=== PATIENT | female | born 1995 | race Caucasian/White ===

== ENCOUNTER 2018-02-20 20:52 | Emergency (ER) | payer OTHER ==
[2018-02-20] MEDS ORDERED: LIDOCAINE 2% JELLY 5 ML TUBE TOP ONE (22:26)
[2018-02-20] MEDS ORDERED: HYDROCODONE/ACETAMINOPHEN 5-325 MG (6 TAB/ER DISP) PO PRN (22:29)
--- NOTE | 2018-02-20 22:31 | ER Document Report ---
ED General - General Chief Complaint: Urinary Problem Stated Complaint: PAIN WITH URINATION Time Seen by Provider: 02/20/18 22:03 Notes: Patient is a 22-year-old female who presents with complaint of pain from genital herpes. She was seen at [facility] earlier today and diagnosed with that. She is placed on valacyclovir. She says hurts to pee and she has pain and therefore she is requesting second opinion to see if there is anything else that she can do to help deal with the pain. She has no other complaints at this time. - Related Data Allergies/Adverse Reactions: No Known Allergies Allergy (Verified 02/20/18 20:57) Past Medical History - Social History Smoking Status: Never Smoker Chew tobacco use (# tins/day): No Frequency of alcohol use: None Drug Abuse: None Family History: Reviewed & Not Pertinent Patient has suicidal ideation: No Patient has homicidal ideation: No Renal/ Medical History: Denies: Hx Peritoneal Dialysis Review of Systems - Review of Systems Notes: My Normal Review Basic REVIEW OF SYSTEMS: CONSTITUTIONAL : Denies fever, chills, or sweats. Denies recent illness. GENITOURINARY: burning over genital area when urinating. FEMALE GENITOURINARY: Some diagnosis of genital herpes MUSCULOSKELETAL: Denies neck or back pain or joint pain or swelling. SKIN: Genital herpes NEUROLOGICAL: Denies altered mental status or loss of consciousness. Denies headache. ALL OTHER SYSTEMS REVIEWED AND NEGATIVE. Physical Exam - Vital signs Vitals: Temp Pulse Resp BP Pulse Ox 98.7 F 89 16 132/70 H 98 02/20/18 21:10 02/20/18 21:10 02/20/18 21:10 02/20/18 21:10 02/20/18 21:10 - Notes Notes: General Appearance: Well nourished, alert, cooperative, no acute distress, moderate obvious discomfort. Vitals: reviewed, See vital signs table. Genital: Pelvic exam performed with female nurse at bedside. Patient has several herpetic lesions over the external vaginal genitalia. Neuro: speech clear, oriented x 3, normal affect, responds appropriately to questions. Course - Re-evaluation Re-evalutation: 02/21/18 05:51 Patient has obvious genital herpes on exam. I will give her lidocaine cream to apply. I informed her she cannot plate more than I have prescribed or she could become lidocaine toxic. Informed her that the medication that Abilio put her on his appropriate medication for treatment of this. Informed her to return to ER if she has fevers, swelling or redness in the genital area, or any signs of infection. Currently patient has no evidence of secondary bacterial infection on external genital exam. Dictation of this chart was performed using voice recognition software; therefore, there may be some unintended grammatical errors. - Vital Signs Vital signs: Temp Pulse Resp BP Pulse Ox 98.1 F 84 16 108/73 98 02/20/18 22:55 02/20/18 22:55 02/20/18 22:55 02/20/18 22:55 02/20/18 22:55 Discharge - Discharge Clinical Impression: Genital herpes Qualifiers: Herpes simplex infection site: vulvovaginitis Qualified Code(s): A60.04 - Herpesviral vulvovaginitis Condition: Good Disposition: HOME, SELF-CARE Additional Instructions: Please apply a thin layer of the lidocaine jelly on your vaginal area no more than once every 8 hours. Please take the valcyclovir as prescribed. Please follow up wiht your doctor in 1 week for reevaluation. return tot ER if you have severe headaches or fevers. Prescriptions: RX: Lidocaine 1 gm TP ASDIR PRN #30 cream..g. PRN Reason:
[2018-02-20 22:56] VITALS: BP 108/73
== END 2018-02-20 22:55 | disposition home or self-care (01) ==
LOC: ER 20:52
DX: A60.04 Herpesviral vulvovaginitis (principal); R39.198 Other difficulties with micturition; Z79.899 Other long term (current) drug therapy
CPT/HCPCS: 99283

== ENCOUNTER 2018-02-21 10:21 | Emergency (ER) | payer OTHER ==
--- NOTE | 2018-02-21 10:29 | ER Document Report ---
ED Medical Screen (RME) <TAISHA GAMING - Last Filed: 02/21/18 10:29> <NARCISO TEAGUE - Last Filed: 02/21/18 16:58> - General Chief Complaint: Urinary Problem Stated Complaint: UNABLE TO URINATE Time Seen by Provider: 02/21/18 10:27 Notes: 22 years old female with a history of herpes presents today with unable to urinate for 24 hours, lower abdominal pain and discomfort. No fever chills nausea. Did not have any dysuria frequency prior to that. Seen free in moderate to severe discomfort. Tender abdomen (TAISHA GAMING) - Related Data Allergies/Adverse Reactions: No Known Allergies Allergy (Verified 02/21/18 10:23) Past Medical History - Social History Chew tobacco use (# tins/day): No Frequency of alcohol use: None Drug Abuse: None Renal/ Medical History: Denies: Hx Peritoneal Dialysis <TAISHA GAMING - Last Filed: 02/21/18 10:29> - Vital signs Vitals: Temp Pulse Resp BP Pulse Ox 97.6 F 87 16 120/78 99 02/21/18 10:25 02/21/18 10:25 02/21/18 10:25 02/21/18 10:25 02/21/18 10:25 Course - Laboratory Result Diagrams: 02/21/18 13:25 02/21/18 13:25 <NARCISO TEAGUE - Last Filed: 02/21/18 16:58> - Vital Signs Vital signs: Temp Pulse Resp BP Pulse Ox 97.6 F 87 16 120/78 99 02/21/18 10:25 02/21/18 10:25 02/21/18 10:25 02/21/18 10:25 02/21/18 10:25 - Laboratory Laboratory results interpreted by me: 02/21/18 11:02 Urine Protein 100 H Urine Ketones TRACE H Urine Blood SMALL H Urine Nitrite POSITIVE H Ur Leukocyte Esterase SMALL H Doctor's Discharge <TAISHA GAMING - Last Filed: 02/21/18 10:29> <NARCISO TEAGUE - Last Filed: 02/21/18 16:58> - Discharge Clinical Impression: Urinary retention, UTI (urinary tract infection), Herpes genitalia Condition: Stable Disposition: HOME, SELF-CARE Additional Instructions: Herpes Genitalia You have herpes genitalia and her on an antiviral medication for this condition. Additionally, you have developed a UTI. We are putting you on an antibiotic for that condition. URINARY TRACT INFECTION: Your evaluation indicates that you have a urinary tract infection. This is due to germs growing in the bladder. This is a common problem. This infection usually responds quickly to antibiotics. Your antibiotic should be taken exactly as prescribed. Drink plenty of fluids -- three to four quarts a day. Occasionally, a bladder anesthetic will be prescribed to help stop the feeling of urgency until the antibiotic has a chance to clear the infection. This may cause your urine to be dark orange. Certain urine infections require a culture. If the doctor obtained a culture, the results will be back in two days. You should call to see if a change in treatment is needed. A repeat urinalysis after you finish treatment is often recommended. The physician will let you know if further testing is required. Call the doctor if you develop fever, chills, flank pain, inability to urinate, or blood in the urine. ANTIBIOTIC THERAPY: You have been given an antibiotic prescription. It's important that you take all the medication, unless instructed otherwise by your physician. Failure to complete the entire course can result in relapse of your condition. Common side effects of antibiotics include nausea, intestinal cramping, or diarrhea. Women may develop vaginal yeast infections, and babies can get yeast (thrush) in the mouth following the use of antibiotics. Contact your physician if you develop significant side effects from this medication. Allergy to this antibiotic can result in hives, wheezing, faintness, or itching. If symptoms of allergy occur, stop the medication and call the doctor. NITROFURANTOIN (MACRODANTIN, MACROBID): You have received a prescription for nitrofurantoin (Macrodantin). This antibiotic is used for urinary tract infections. Women who are or nursing should notify the physician before taking this medicine. If you have ever had a problem caused by this medication in the past, be sure the physician is aware of it. Common side effects of this medicine include nausea, vomiting, or decreased appetite. Notify your physician if these side effects become severe. Immediately stop this medicine and call the physician if you develop cough, shortness of breath, chest pain, weakness, jaundice (yellow color of the skin and whites of the eyes), or a skin rash. Take your pain medication as been prescribed. FOLLOW-UP CARE: If you have been referred to a physician for follow-up care, call the physicians office for an appointment as you were instructed or within the next two days. If you experience worsening or a significant change in your symptoms, notify the physician immediately or return to the Emergency Department at any time for re-evaluation. Prescriptions: Lidocaine HCl [Xylocaine 2% Jelly 30 ml Tube] 30 ml MM BIDP PRN #1 tube PRN Reason: Nitrofurantoin/Nitrofuran Mac [Macrobid 100 mg Capsule] 1 tab PO BID #10 capsule
[2018-02-21] MEDS ORDERED: LIDOCAINE 2% URO-JET 5 ML KIT MM ONE ×2 (10:43→15:22)
[2018-02-21] MEDS ORDERED: OXYCODONE-ACETAMINOPHEN 5-325 MG TABLET PO ONE (11:57)
[2018-02-21 12:15] LABS: APPEARANCE,URINE TURBID; BILIRUBIN,URINE NEGATIVE (NEGATIVE); COLOR,URINE YELLOW; GLUCOSE, URINE NEGATIVE (NEGATIVE); KETONES,URINE TRACE mg/dL (NEGATIVE); LEUKOCYTE ESTERASE,URINE SMALL (NEGATIVE); NITRITE,URINE POSITIVE (NEGATIVE); PROTEIN,URINE 100 mg/dL (NEGATIVE); URINE SPECIFIC GRAVITY 1.027; UROBILINOGEN,URINE NEGATIVE mg/dL (<2.0)
[2018-02-21 13:38] LABS: ABSOLUTE LYMPHOCYTES (AUTO) 1.5 10^3/uL (0.5-4.7); ABSOLUTE MONOCYTES (AUTO) 0.5 10^3/uL (0.1-1.4); BASOPHILS % (AUTO) 0.2 % (0-2); EOSINOPHILS % (AUTO) 0.2 % (0-6); HEMATOCRIT 39.9 % (36.0-47.0); LYMPHOCYTES % (AUTO) 24.5 % (13-45); MEAN CORPUSCULAR HEMOGLOBIN 29.7 pg (27.0-33.4); MEAN CORPUSCULAR HGB CONC 34.9 g/dL (32.0-36.0); MEAN CORPUSCULAR VOLUME 85 fl (80-97); PLATELET COUNT 229 10^3/uL (150-450); RED CELL DISTRIBUTION WIDTH 13.3 % (11.5-14.0); SEGMENTED NEUTROPHILS % (AUTO) 66.1 % (42-78); TOTAL CELLS COUNTED % (AUTO) 100 %
[2018-02-21] MEDS: NORMAL SALINE 1000 ML 1,000 ML IV PRN ×2 (13:44→15:50)
[2018-02-21 13:54] LABS: ALANINE AMINOTRANSFERASE 27 U/L (9-52); ALBUMIN 4.6 g/dL (3.5-5.0); ALKALINE PHOSPHATASE 75 U/L (38-126); ANION GAP 12 (5-19); ASPARTATE AMINO TRANSFERASE 23 U/L (14-36); BILIRUBIN,DIRECT 0.2 mg/dL (0.0-0.4); BILIRUBIN,TOTAL 0.4 mg/dL (0.2-1.3); BLOOD UREA NITROGEN 18 mg/dL (7-20); CALCIUM 9.2 mg/dL (8.4-10.2); CARBON DIOXIDE 26 mmol/L (22-30); CHLORIDE 105 mmol/L (98-107); GLUCOSE 85 mg/dL (75-110); POTASSIUM 4.1 mmol/L (3.6-5.0); SODIUM 142.8 mmol/L (137-145); TOTAL PROTEIN 7.2 g/dL (6.3-8.2)
[2018-02-21 17:27] VITALS: BP 108/63
--- NOTE | 2018-02-21 19:20 | ER Document Report ---
ED GI/ - General Chief Complaint: Urinary Problem Stated Complaint: UNABLE TO URINATE Time Seen by Provider: 02/21/18 10:27 Notes: Patient is complaining of pain with urination and unable to urinate for the past 24 hours. She was diagnosed yesterday at the [facility] was herpes genitalia and put on valacyclovir which she is taking. However, she is having severe pain with urination on her lesions from the herpes. She says that she h as been unable to urinate for 24 hours. She was seen here last evening and given oxycodone and a lidocaine gel, but they are not helping. Has not had any fever. - Related Data Allergies/Adverse Reactions: No Known Allergies Allergy (Verified 02/21/18 10:23) Past Medical History - Social History Smoking Status: Never Smoker Chew tobacco use (# tins/day): No Frequency of alcohol use: None Drug Abuse: None Family History: Reviewed & Not Pertinent Patient has suicidal ideation: No Patient has homicidal ideation: No Renal/ Medical History: Denies: Hx Peritoneal Dialysis Review of Systems - Review of Systems Notes: REVIEW OF SYSTEMS: CONSTITUTIONAL : Denies fever. EENT: Denies eye, ear, nose or mouth or throat pain or other symptoms. CARDIOVASCULAR: Denies chest pain. RESPIRATORY: Denies cough, chest congestion, or shortness of breath. GASTROINTESTINAL: Has some nausea, but not vomiting. Lower abdominal discomfort and feels as if she needs to urinate. GENITOURINARY: Denies difficulty or painful urinating, urinary frequency, blood in urine. MUSCULOSKELETAL: Denies back or neck pain. Denies joint pain or swelling. SKIN: Denies rash or skin lesions. NEUROLOGICAL: Denies LOC or altered mental status. Denies headache. Denies sensory loss or motor deficits. ALL OTHER SYSTEMS REVIEWED AND NEGATIVE. Physical Exam - Vital signs Vitals: Temp Pulse Resp BP Pulse Ox 97.6 F 87 16 120/78 99 02/21/18 10:25 02/21/18 10:25 02/21/18 10:25 02/21/18 10:25 02/21/18 10:25 Interpretation: Normal Notes: PHYSICAL EXAMINATION: GENERAL: Appears to be in pain. Vital signs are all normal. Afebrile. HEAD: Atraumatic, normocephalic. EYES: Pupils equal round and reactive to light, extraocular movements intact. ENT: oropharynx clear without exudates. Moist mucous membranes. NECK: Normal range of motion, supple. LUNGS: Breath sounds clear and equal bilaterally. HEART: Regular rate and rhythm without murmurs. ABDOMEN: Soft, tender in the lower midline suprapubic region. No guarding or rebound. No masses. BACK: No tenderness throughout entire back. EXTREMITIES: Normal range of motion without pain. NEUROLOGICAL: Normal speech, normal gait. Normal sensory, motor, and reflex exams. Awake, alert, and oriented x3. Cranial nerves normal. PSYCH: Normal mood, normal affect. SKIN: Warm, dry, no rashes. Course - Re-evaluation Re-evalutation: 02/21/18 19:19 A Cabrera catheter was placed in the patient and there was some urine obtained initially but then it stopped flowing, likely obstructed catheter. When he did not seem to function, we remove the 14 Japanese catheter and put a 16 catheter in. She had a good flow of about 500 mL of dark looking urine. Her urinalysis looks like a definite infection. Patient tells me that she had an infection in her urinary tract a week ago and was put on Macrobid and did not finish her treatment with that medication because her UTI symptoms had subsided. She still has some of those Macrobid tablets remaining. 02/21/18 19:21 Because of his concern the patient may be dehydrated. She was given 2 L of saline. She had good urine flow after that. Cabrera catheter is being left in at this time. Patient is to travel back home to [place] Monday morning. I told her I would leave the catheter in until she gets home on Monday and take it out at that time. - Vital Signs Vital signs: Temp Pulse Resp BP Pulse Ox 98.4 F 70 16 108/63 100 02/21/18 17:15 02/21/18 17:15 02/21/18 10:25 02/21/18 17:15 02/21/18 17:15 - Laboratory Result Diagrams: 02/21/18 13:25 02/21/18 13:25 Laboratory results interpreted by me: 02/21/18 11:02 Urine Protein 100 H Urine Ketones TRACE H Urine Blood SMALL H Urine Nitrite POSITIVE H Ur Leukocyte Esterase SMALL H Discharge - Discharge Clinical Impression: Urinary retention, UTI (urinary tract infection), Herpes genitalia Condition: Stable Disposition: HOME, SELF-CARE Additional Instructions: Herpes Genitalia You have herpes genitalia and her on an antiviral medication for this condition. Additionally, you have developed a UTI. We are putting you on an antibiotic for that condition. URINARY TRACT INFECTION: Your evaluation indicates that you have a urinary tract infection. This is due to germs growing in the bladder. This is a common problem. This infection usually responds quickly to antibiotics. Your antibiotic should be taken exactly as prescribed. Drink plenty of fluids -- three to four quarts a day. Occasionally, a bladder anesthetic will be prescribed to help stop the feeling of urgency until the antibiotic has a chance to clear the infection. This may cause your urine to be dark orange. Certain urine infections require a culture. If the doctor obtained a culture, the results will be back in two days. You should call to see if a monteiro ge in treatment is needed. A repeat urinalysis after you finish treatment is often recommended. The physician will let you know if further testing is required. Call the doctor if you develop fever, chills, flank pain, inability to urinate, or blood in the urine. ANTIBIOTIC THERAPY: You have been given an antibiotic prescription. It's important that you take all the medication, unless instructed otherwise by your physician. Failure to complete the entire course can result in relapse of your condition. Common side effects of antibiotics include nausea, intestinal cramping, or diarrhea. Women may develop vaginal yeast infections, and babies can get yeast (thrush) in the mouth following the use of antibiotics. Contact your physician if you develop significant side effects from this medication. Allergy to this antibiotic can result in hives, wheezing, faintness, or itching. If symptoms of allergy occur, stop the medication and call the doctor. NITROFURANTOIN (MACRODANTIN, MACROBID): You have received a prescription for nitrofurantoin (Macrodantin). This antibiotic is used for urinary tract infections. Women who are or nursing should notify the physician before taking this medicine. If you have ever had a problem caused by this medication in the past, be sure the physician is aware of it. Common side effects of this medicine include nausea, vomiting, or decreased appetite. Notify your physician if these side effects become severe. Immediately stop this medicine and call the physician if you develop cough, shortness of breath, chest pain, weakness, jaundice (yellow color of the skin and whites of the eyes), or a skin rash. Take your pain medication as been prescribed. FOLLOW-UP CARE: If you have been referred to a physician for follow-up care, call the physicians office for an appointment as you were instructed or within the next two days. If you experience worsening or a significant change in your symptoms, notify the physician immediately or return to the Emergency Department at any time for re-evaluation. Prescriptions: Lidocaine HCl [Xylocaine 2% Jelly 30 ml Tube] 30 ml MM BIDP PRN #1 tube PRN Reason: Nitrofurantoin/Nitrofuran Mac [Macrobid 100 mg Capsule] 1 tab PO BID #10 capsule
== END 2018-02-21 17:28 | disposition home or self-care (01) ==
LOC: ER 10:21
DX: R33.9 Retention of urine, unspecified (principal); N39.0 Urinary tract infection, site not specified; A60.00 Herpesviral infection of urogenital system, unspecified; R11.0 Nausea
CPT/HCPCS: 99284; 96360; 51702; 36415; 87086; 85025; 80053; 81001; J7030; J3490